=== PATIENT | female | born 1955 | race Caucasian/White ===

== ENCOUNTER 2021-10-14 16:59 | Emergency (ER) | payer OTHER, SELFPAY ==
--- NOTE | 2021-10-14 17:03 | ED.URI ---
HPI - URI/Sore Throat General Chief Complaint: Upper Respiratory Infection Stated Complaint: cough with chest congestion Time Seen by Provider: 10/14/21 17:03 Source: patient and RN notes reviewed History of Present Illness HPI Narrative: Patient is 66-year-old female who presents the urgent care with complaints of cough and chest congestion. Patient states that she has been sneezing for the last couple weeks and over the last 5 days she has had a harsh cough. Denies of any ill exposures. States that the head congestion has been for the last couple days. Patient has been getting relief with Cookie-Reagan but continuous coughing has not been relieved. Patient denies any fevers, nausea or vomiting. No other complaints. No acute distress noted. Patient aware of the plan of care. Some parts of this dictation were generated by voice recognition software and may contain typographical and/or grammatical inaccuracies. Related Data Home Medications Medication Instructions Recorded Confirmed amlodipine 5 mg PO DAILY 10/14/21 10/14/21 indapamide 1.25 mg PO DAILY 10/14/21 10/14/21 labetalol 200 mg PO BID 10/14/21 10/14/21 levothyroxine 175 mcg PO DAILY 10/14/21 10/14/21 Allergies Allergy/AdvReac Type Severity Reaction Status Date / Time lisinopril Allergy Unknown Swelling Verified 10/14/21 17:13 Penicillins Allergy Unknown Rash Verified 10/14/21 17:13 Review of Systems Review of Systems: CONSTITUTIONAL: Denies fever, chills, or sweats. EYES: Denies visual changes, redness, or discharge. ENT: Reports of sinus congestion, postnasal drainage and mild sore throat CARDIOVASCULAR: Denies chest pain, palpitations, or edema. RESPIRATORY: Reports of persistent harsh coughing without dyspnea GASTROINTESTINAL: Denies abdominal pain, nausea, vomiting, or diarrhea. GENITOURINARY: Denies dysuria or hematuria. SKIN: Denies rash or itching. MUSCULOSKELETAL: Denies back pain, joint pain, or myalgia. NEUROLOGIC: Denies headache, numbness, or weakness. All other systems reviewed are negative, except as documented in HPI. PMFSH Comments At the time of my signature, I reviewed and agree with the nursing past medical, surgical, social, and family history. There is no relevant family history pertinent to the patient complaint. Exam Narrative: GENERAL: This is a well-nourished, well-developed patient, in no apparent distress. HEAD: normocephalic, atraumatic. Frontal sinus tenderness EYES: PERRL. Sclera clear/white. Vision is grossly intact. EARS: External ears normal, auditory canals clear and without drainage, TMs normal without perforation. Hearing grossly intact. NOSE: External nose normal with no obvious nasal discharge. Bilateral nare inflammation/redness with clear to yellow rhinorrhea THROAT: Mucous membranes moist, posterior pharynx clear. Moderate postnasal drainage NECK: Neck supple CARDIOVASCULAR: Regular rate and rhythm without murmurs, gallops, or rubs. RESPIRATORY: Clear to auscultation. Breath sounds equal bilaterally. No wheezes, rales, or rhonchi. SKIN: warm, intact with no suspicious lesions or rash, good texture and turgor. NEURO: awake, alert, and oriented to person, place and time. There were no obvious focal neurologic abnormalities. EXTREMITIES: No clubbing, cyanosis, or edema. Course Course Level of Care: Express Care Visit Vital Signs Vital signs: Vital Signs Temperature 98.2 F 10/14/21 17:06 Pulse Rate 65 10/14/21 17:06 Respiratory Rate 20 10/14/21 17:06 Blood Pressure 139/78 10/14/21 17:06 Pulse Oximetry 98 10/14/21 17:06 Temperature 98.2 F 10/14/21 17:06 Pulse Rate 65 10/14/21 17:06 Respiratory Rate 20 10/14/21 17:06 Blood Pressure 139/78 10/14/21 17:06 Pulse Oximetry 98 10/14/21 17:06 Reviewed MDM - URI/Sore Throat MDM Narrative Medical decision making narrative: Advised patient to continue taking Cookie-Reagan and/or Benadryl prior to bedtime. Complete the steroid as pres
[2021-10-14 17:06] VITALS: BP 139/78; PULSE 65; RESP 20; TEMP 36.8; O2SAT 98
== END 2021-10-14 17:24 | disposition home or self-care (01) ==
PROVIDERS: Emergency Provider Nurse Practitioner Family; PCP Internal Medicine Geriatric Medicine
DX: J40 Bronchitis, not specified as acute or chronic (principal); J32.9 Chronic sinusitis, unspecified
CPT/HCPCS: 99203; G0463